=== PATIENT | male | born 1980 | race Two or more races ===

== ENCOUNTER 2020-09-17 08:22 | Emergency (ER) | payer OTHER ==
[~2020-09-17] VITALS: Ht 175.3 cm; Wt 61.6 kg
[2020-09-17 08:28] VITALS: BP 153/96
--- NOTE | 2020-09-17 08:40 | NUR ---
PT AMBULATORY TO ROOM FROM TRIAGE. PT C/O L-SHOULDER PAIN FOR 3 DAYS, WITH LIMITED MOVEMENT. CALL LIGHT WITHIN REACH.
--- NOTE | 2020-09-17 08:45 | NUR ---
PA AT BS
--- NOTE | 2020-09-17 08:50 | NUR ---
PT TO IMAGING
[2020-09-17] MEDS ORDERED: IBUPROFEN 800 MG TABLET ONE (08:52)
--- NOTE | 2020-09-17 08:57 | NUR ---
PT BACK FROM IMAGING, MEDICATED PER EMAR
[2020-09-17] MEDS ORDERED: IBUPROFEN 800 MG TABLET PO ONE (09:00)
--- NOTE | 2020-09-17 09:23 | NUR ---
Patient given discharge instructions and RX, they have confirmed that they understand the instructions. Patient ambulatory with steady gait.
== END 2020-09-17 09:25 | disposition home or self-care (01) ==
LOC: ED 09:09
DX: M25.512 Pain in left shoulder (principal)
CPT/HCPCS: 99283